=== PATIENT | male | born 1960 | race American Indian/Alaskan Native ===

== ENCOUNTER 2019-05-31 15:17 | Emergency (ER) | payer OTHER ==
--- NOTE | 2019-05-31 15:34 | Emergency Department Report ---
Blank Doc - Documentation Documentation: 58-year-old male that presents with acute headaches. Denies any trauma. Stated is a new onset of headaches. This initial assessment/diagnostic orders/clinical plan/treatment(s) is/are subject to change based on patient's health status, clinical progression and re- assessment by fellow clinical providers in the ED. Further treatment and workup at subsequent clinical providers discretion. Patient/guardians urged not to elope from the ED as their condition may be serious if not clinically assessed and managed. Initial orders include: 1- Patient sent to [facility] for further evaluation and treatment 2- CT head
[2019-05-31 15:35] VITALS: BP 149/80
[2019-05-31] MEDS ORDERED: SODIUM CHLORIDE 0.9% 1000 ML 1,000 ML IV ONE (17:08)
[2019-05-31] MEDS ORDERED: diphenhydrAMINE 50 MG/ML VIAL IV ONE (17:08)
[2019-05-31] MEDS ORDERED: METOCLOPRAMIDE 10 MG/2 ML INJ IV ONE (17:08)
[2019-05-31] MEDS ORDERED: KETOROLAC 30 MG/1 ML INJ IV ONE (17:08)
--- NOTE | 2019-05-31 17:16 | Emergency Department Report ---
ED Headache HPI - General Chief Complaint: Headache Stated Complaint: HEADACHE Time Seen by Provider: 05/31/19 15:33 - History of Present Illness Initial Comments: Patient is a 58-year-old male presents to the emergency room with complaints of a frontal headache intermittently for a month. he describes the pain as a pounding sensation. he states that he has blurred vision when the pain is intense but has normal vision otherwise. pt denies any numbness, weakness, nausea, vomiting, fever, neck stiffness, photophobia. Patient states he has not been taking anything for the headaches. He states that he just started getting them a month ago but does not usually have headaches. He states he drinks approximately 2 cups of coffee a day. pt denies any past medical history, allergies to medications, or daily medications. Allergies/Adverse Reactions: Allergies strawberry Adverse Reaction (Verified 05/31/19 15:23) Unknown ED Review of Systems ROS: Stated complaint: HEADACHE Other details as noted in HPI Comment: All other systems reviewed and negative ED Past Medical Hx - Surgical History Past Surgical History?: Yes Additional Surgical History: tendon surgery - Social History Smoking Status: Never Smoker Substance Use Type: Alcohol ED Physical Exam - General Limitations: No Limitations General appearance: alert, in no apparent distress - Head Head exam: Present: atraumatic, normocephalic - Eye Eye exam: Present: normal appearance, PERRL, EOMI - ENT ENT exam: Present: mucous membranes moist - Neck Neck exam: Present: full ROM. Absent: meningismus - Respiratory Respiratory exam: Present: normal lung sounds bilaterally. Absent: respiratory distress, wheezes, rales, rhonchi, stridor, chest wall tenderness, accessory muscle use, decreased breath sounds, prolonged expiratory - Cardiovascular Cardiovascular Exam: Present: regular rate, normal rhythm, normal heart sounds. Absent: systolic murmur, diastolic murmur, rubs, gallop - Neurological Exam Neurological exam: Present: alert, oriented X3, CN II-XII intact, normal gait, other (normal finger to nose, normal heel to kirby, 5/5 strength in the BUE/BLE, sensation intact throughout, no focal neuro deficit ). Absent: motor sensory deficit - Psychiatric Psychiatric exam: Present: normal affect, normal mood - Skin Skin exam: Present: warm, dry, intact ED Course Vital Signs 05/31/19 15:34 Temperature 98.7 F Pulse Rate 69 Respiratory 18 Rate Blood Pressure 149/80 O2 Sat by Pulse 100 Oximetry - Reevaluation(s) Reevaluation #1: 05/31/19 20:33 spoke with patient regarding transfer and pt does not want to go to ambulance, pt given CT disc, advised pt that he needed to sign out against medical advice, pt agreed and signed form - Consultations Consultation #1: 05/31/19 20:[address] Dee, neurosurgery at [place], states that he cannot consult on patient but recommended ER to ER transfer ED Medical Decision Making - Radiology Data Radiology results: report reviewed CT BRAIN: 05/31/2019 INDICATION / CLINICAL INFORMATION: headache. COMPARISON: None available. FINDINGS: BRAIN/INTRACRANIAL STRUCTURES: Unenhanced CT images of the brain demonstrate no evidence of acute intracranial abnormality. There is prominent cortical encephalomalacia along the medial aspect of the right occipital lobe, with what appears to be a dural-based cyst along the adjacent parietal falx. This cyst has a partially calcified rim which projects laterally, and measures approximately 3 cm in length and 1.1 cm in thickness. This is presumably related to prior brain injury or infarct. This may be evidence of an old falcine subdural hematoma . There is no evidence of acute hemorrhage. There is no evidence of acute ischemic injury. Ventricles and sulci are normal in size and shape. EXTRACRANIAL STRUCTURES: Unremarkable. IMPRESSION: No definite acute abnormality. Right medial parieto-occipital cortical encephalomalacia and unusual dural based chronic appearing cystic structure. Are there any prior studies available for comparison All CT scans at this location are performed using dose reduction to ALARA by means of automated exposure control. Signer Name: Get Nagy MD Signed: 05/31/2019 5:54 PM Workstation Name: [id number] Transcribed By: RAMA Dictated By: Get Nagy MD Electronically Authenticated By: Get Nagy MD Signed Date/Time: 05/31/19 6028 - Medical Decision Making Patient is a 58-year-old male presents to the emergency room with complaints of a frontal headache intermittently for a month. he describes the pain as a pounding sensation. he states that he has blurred vision when the pain is intense but has normal vision otherwise. pt denies any numbness, weakness, nausea, vomiting, fever, neck stiffness, photophobia. Patient states he has not been taking anything for the headaches. He states that he just started getting them a month ago but does not usually have headaches. He states he drinks approximately 2 cups of coffee a day. pt denies any past medical history, allergies to medications, or daily medications. VSS. no neurological deficits on examination. CT head: No definite acute abnormality. Right medial parieto- occipital cortical encephalomalacia and unusual dural based chronic appearing cystic structure. pt given medication for BAE and BAE improved. discussed with Dr. Ewing, neurosurgery at [place], states that he cannot consult on patient but recommended ER to ER transfer. discussed transfer with pt and pt did not want to be transported by ambulance. Advised patient that he needed to sign out against AMA and pt signed AMA form. pt was given the CT disc to take to [place]. The patient is alert and oriented 3. The patient exhibits decision-making ca pacity. The patient is free from distracting injury. The risk of leaving without a complete medical examination and AGAINST MEDICAL ADVICE were expecting to the patient and included , disability, paralysis, permanent loss of quality of life. The patient verbalized understanding to these and was able to articulate these risks in their own words. - Differential Diagnosis ICH, SDH, mass, malignancy, migraines, tension BAE, [employer] disorder Critical care attestation.: If time is entered above; I have spent that time in minutes in the direct care of this critically ill patient, excluding procedure time. ED Disposition Clinical Impression: Encephalomalacia on imaging study Headache Qualifiers: Headache type: unspecified Headache chronicity pattern: acute headache Intractability: not intractable Qualified Code(s): R51 - Headache Disposition: DC-07 LEFT AGAINST MED ADVICE Is pt being admited?: No Does the pt Need Aspirin: No Condition: Undetermined Instructions: Acute Headache (ED) Additional Instructions: please be seen at [facility] immediately to avoid permanent disability or . you are leaving today against medical advice. return to the emergency room immediately for any new or worsening symptoms. Referrals: please, be seen at [facility] [Other] - MYESHA Forms: AMA Form, Work/School Release Form(ED) Time of Disposition: 20:35 Print Language: LUXEMBOURGISH
[2019-05-31] MEDS ORDERED: KETOROLAC 30 MG/1 ML INJ IM ONE (17:28)
[2019-05-31] MEDS ORDERED: METOCLOPRAMIDE 10 MG TAB PO ONE (17:28)
[2019-05-31] MEDS ORDERED: diphenhydrAMINE 25 MG CAP PO ONE (17:28)
--- NOTE | 2019-05-31 17:59 | Cat Scan Report ---
CT BRAIN: 05/31/2019 INDICATION / CLINICAL INFORMATION: headache. COMPARISON: None available. FINDINGS: BRAIN/INTRACRANIAL STRUCTURES: Unenhanced CT images of the brain demonstrate no evidence of acute int racranial abnormality. There is prominent cortical encephalomalacia along the medial aspect of the ri ght occipital lobe, with what appears to be a dural-based cyst along the adjacent parietal falx. This cyst has a partially calcified rim which projects laterally, and measures approximately 3 cm in noel th and 1.1 cm in thickness. This is presumably related to prior brain injury or infarct. This may be evidence of an old falcine subdural hematoma . There is no evidence of acute hemorrhage. There is no evidence of acute ischemic injury. Ventricles and sulci are normal in size and shape. EXTRACRANIAL STRUCTURES: Unremarkable. IMPRESSION: No definite acute abnormality. Right medial parieto-occipital cortical encephalomalacia and unusual dural based chronic appearing cystic structure. Are there any prior studies available for comparison All CT scans at this location are performed using dose reduction to ALARA by means of automated expos ure control. Signer Name: Get Nagy MD Signed: 05/31/2019 5:54 PM Workstation Name: [id number]
== END 2019-05-31 21:30 | disposition left against medical advice (07) ==
LOC: ED 15:17
DX: R94.02 Abnormal brain scan (principal); R51 Headache; Z91.018 Allergy to other foods
CPT/HCPCS: 70450; 96372; 99283; J1885

== ENCOUNTER 2019-09-06 10:13 | Emergency (ER) | payer OTHER ==
[2019-09-06 10:25] VITALS: BP 148/89
[2019-09-06] MEDS ORDERED: SODIUM CHLORIDE 0.9% 1000 ML 1,000 ML IV ONE (13:40)
[2019-09-06] MEDS ORDERED: diphenhydrAMINE 50 MG/ML VIAL IV ONE (13:40)
[2019-09-06] MEDS ORDERED: METOCLOPRAMIDE 10 MG/2 ML INJ IV ONE (13:40)
--- NOTE | 2019-09-06 13:52 | Emergency Department Report ---
ED Headache HPI - General Chief Complaint: Headache Stated Complaint: SEVERE HEADACHE Time Seen by Provider: 09/06/19 13:29 - History of Present Illness Initial Comments: This is a 58-year-old male nontoxic, well nourished in appearance, no acute signs of distress presents to the ED with c/o of acute on chronic headache. Patient describes headache as diffuse with level of 3 out of 10. Patient denies thunderclap headache. Patient denies any radiation of pain. Patient denies any head trauma. Patient denies any visual changes. Patient denies worse headache. Patient stated that darkness makes headache better and bright lights make the headache worse. Patient was seen on 05/[address] normal [address] scan. Patient denies any numbness, tingling, fever, chills, nausea, vomiting, chest pain, shortness of breath, stiff neck. Patient denies facial drooping or one sided weakness. Patient denies any radiation of pain. Patient denies any allergies. Past medical history includes migraine headaches. Timing/Duration: episodic Quality: mild, achy Head Injury Location: other (diffuse) Recent Head Trauma: occasional headaches Associated Symptoms: denies symptoms. denies: confusion, fatigue, facial pain, fever/chills, flushing, loss of consciousness, nausea/vomiting, nasal congestion, nasal drainage, numbness in legs/feet, rash, seizures, sinus infection, stiff neck, vision changes, weakness Allergies/Adverse Reactions: Allergies strawberry Adverse Reaction (Verified 05/31/19 15:23) Unknown Home Medications: Ambulatory Orders Butalb/Acetaminophen/Caffeine [Fioricet 50-300-40 mg CAP] 1 cap PO Q6HR PRN #12 cap 09/06/19 ED Review of Systems ROS: Stated complaint: SEVERE HEADACHE Other details as noted in HPI Constitutional: denies: chills, fever Eyes: denies: eye pain, eye discharge, vision change ENT: denies: ear pain, throat pain Respiratory: denies: cough, shortness of breath, wheezing Cardiovascular: denies: chest pain, palpitations Endocrine: no symptoms reported Gastrointestinal: denies: abdominal pain, nausea, diarrhea Genitourinary: denies: urgency, dysuria Musculoskeletal: denies: back pain, joint swelling, arthralgia Skin: denies: rash, lesions Neurological: headache. denies: weakness, paresthesias Psychiatric: denies: anxiety, depression Hematological/Lymphatic: denies: easy bleeding, easy bruising ED Past Medical Hx - Past Medical History Previous Medical History?: No - Surgical History Past Surgical History?: Yes Additional Surgical History: tendon surgery - Social History Smoking Status: Never Smoker Substance Use Type: Alcohol - Medications Home Medications: Home Medications Medication Instructions Recorded Confirmed Last Taken Type Butalb/Acetaminophen/Caffeine 1 cap PO Q6HR PRN #12 cap 09/06/19 Unknown Rx [Fioricet 50-300-40 mg CAP] ED Physical Exam - General Limitations: No Limitations General appearance: alert, in no apparent distress - Head Head exam: Present: atraumatic, normocephalic - Eye Eye exam: Present: normal appearance, PERRL, EOMI - Neck Neck exam: Present: normal inspection, full ROM. Absent: tenderness, meningismus, lymphadenopathy - Respiratory Respiratory exam: Present: normal lung sounds bilaterally. Absent: respiratory distress, wheezes, rales, rhonchi, stridor, chest wall tenderness, accessory muscle use, decreased breath sounds, prolonged expiratory - Cardiovascular Cardiovascular Exam: Present: regular rate, normal rhythm, normal heart sounds. Absent: bradycardia, tachycardia, irregular rhythm, systolic murmur, diastolic murmur, rubs, gallop - Extremities Exam Extremities exam: Present: normal inspection, full ROM - Back Exam Back exam: Present: normal inspection, full ROM. Absent: tenderness, CVA tenderness (R), CVA tenderness (L), muscle spasm, paraspinal tenderness, vertebral tenderness, rash noted - Neurological Exam Neurological exam: Present: alert, oriented X3, normal gait - Expanded Neurological Exam Expanded Patient oriented to: Present: person, place, time Cranial nerves: EOM's Intact: Normal, Facial Sensation: Normal Cerebellar function: Finger to Nose: Normal Upper motor neuron: Pronator Drift: Normal, Sensory Extinction: Normal Motor strength exam: RUE: 5, LUE: 5, RLE: 5, LLE: 5 Best Eye Response (Hubertus): (4) open spontaneously Best Motor Response (Esc[place]): (6) obeys commands Best Verbal Response (Hubertus): (5) oriented Hubertus Total: 15 - Psychiatric Psychiatric exam: Present: normal affect, normal mood - Skin Skin exam: Present: warm, dry, intact, normal color. Absent: rash ED Course Vital Signs 09/06/19 10:22 Temperature 98.1 F Pulse Rate 64 Respiratory 18 Rate Blood Pressure 148/89 [Right] O2 Sat by Pulse 98 Oximetry - Reevaluation(s) Reevaluation #1: 09/06/19 13:51 Patient is speaking in full sentences with no signs of distress noted. ED Medical Decision Making - Medical Decision Making This is a 58-year-old male that presents with headache. Patient is stable and was examined by me. Patient is neurologically stable. There is no stiff neck or neck pain. Vital signs are stable. Patient is afebrile. Patient received Benadryl and Reglan and 1 L of normal saline which the patient stated that headache has subsided and resolved. Patient was instructed not to operate any machinery after discharged due to drowsiness of Benadryl. Patient stated that a family member will drive patient home. Patient is discharged with Fioricet. Patient was referred to Follow-up with a primary care/neurologist doctor in 3-5 days or if symptoms worsen and continue return to emergency room as soon as possible. At time of discharge, the patient does not seem toxic or ill in appearance. No acute signs of distress noted. Patient agrees to discharge treatment plan of care. No further questions noted by the patient. Critical care attestation.: If time is entered above; I have spent that time in minutes in the direct care of this critically ill patient, excluding procedure time. ED Disposition Clinical Impression: Headache Qualifiers: Headache type: unspecified Headache chronicity pattern: episodic headache Intractability: not intractable Qualified Code(s): R51 - Headache Disposition: DC-01 TO HOME OR SELFCARE Is pt being admited?: No Does the pt Need Aspirin: No Condition: Stable Instructions: Acute Headache (ED), Butalbital/Aspirin/Caffeine (By mouth) Additional Instructions: Follow-up with a primary care doctor in 3-5 days or if symptoms worsen and continue return to emergency room as soon as possible. Prescriptions: Butalb/Acetaminophen/Caffeine [Fioricet 50-300-40 mg CAP] 1 cap PO Q6HR PRN #12 cap PRN Reason: Headache Referrals: PRIMARY CARE, [Primary Care Provider] - 3-5 Days CHEYANNE YEUNG MD [Staff Physician] - 3-5 Days VIV BILLY MD [Staff Physician] - 3-5 Days [facility] [Outside] - 3-5 Days Forms: Work/School Release Form(ED)
== END 2019-09-06 16:48 | disposition home or self-care (01) ==
LOC: ED 10:13
DX: R51 Headache (principal); Z98.890 Other specified postprocedural states; Z91.018 Allergy to other foods
CPT/HCPCS: 96374; 96375; 99282; J1200; J2765; J7030